=== PATIENT | male | born 1970 | race Caucasian/White ===

== ENCOUNTER 2024-10-21 15:30 | Outpatient (RCR) | payer OTHER, SELFPAY | END 2025-02-18 23:59 | disposition home or self-care (01) | PROVIDERS: PCP Family Medicine; Visit Provider Family Medicine | DX: M75.41 Impingement syndrome of right shoulder (principal); M25.571 Pain in right ankle and joints of right foot; M25.511 Pain in right shoulder; M25.512 Pain in left shoulder; Z51.89 Encounter for other specified aftercare | CPT/HCPCS: 97110; 97140; 97162 ==

== ENCOUNTER 2025-04-06 08:34 | Outpatient (CLI) | payer OTHER, SELFPAY | END 2025-04-06 08:35 | disposition home or self-care (01) | LOC: NFLDREF 04-07 18:07 | PROVIDERS: PCP Family Medicine; Referring Provider Family Medicine; Visit Provider Family Medicine | DX: I10 Essential (primary) hypertension (principal); E78.00 Pure hypercholesterolemia, unspecified | CPT/HCPCS: 80053; 80061; G0103 ==

== ENCOUNTER 2025-04-13 08:34 | Outpatient (CLI) | payer OTHER, SELFPAY | END 2025-04-13 08:35 | disposition home or self-care (01) | LOC: NFLDREF 04-16 11:13 | PROVIDERS: PCP Family Medicine; Referring Provider Family Medicine; Visit Provider Family Medicine | DX: Z71.84 Encounter for health counseling related to travel (principal) | CPT/HCPCS: 86762 ==